=== PATIENT | female | born 2000 | race Native Hawaiian/Other Pacific Islander ===

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

== ENCOUNTER 2020-12-07 12:15 | Outpatient (CLI) | payer OTHER ==
[2020-12-07 12:31] LABS: PLATELET COUNT 367 K/uL (152-353)
[2020-12-07 12:54] LABS: POTASSIUM 4.3 mmol/L (3.6-5.2)
== END 2020-12-07 20:03 | disposition home or self-care (01) ==
LOC: LABW 12:15
PROVIDERS: ATTEND Nurse Practitioner Family
DX: L20.89 Other atopic dermatitis (principal)
CPT/HCPCS: 36415; 80053; 85027